=== PATIENT | female | born 1955 | race Caucasian/White ===

== ENCOUNTER 2018-10-17 06:27 | Day surgery (SDC) | payer OTHER ==
[2018-10-16 14:51] VITALS: BP 117/59
[2018-10-16 14:53] LABS: BASOPHILS % (AUTO) 0.6 % (0.0-5.0); EOSINOPHILS % (AUTO) 1.5 % (0.0-8.0); HEMATOCRIT 39.9 % (36-48); MEAN CORPUSCULAR HEMOGLOBIN 30.6 pg (27.0-33.0); MEAN CORPUSCULAR HGB CONC 34.6 g/dL (32.0-36.0); MEAN CORPUSCULAR VOLUME 88.3 fL (79-99); MONOCYTES % (AUTO) 7.2 % (3.0-13.0); NEUTROPHILS % (AUTO) 59.7 % (40.0-77.0); PLATELET COUNT (AUTO) 231 K/uL (130-400); RED BLOOD CELL COUNT(AUTO) 4.52 MIL/uL (4.00-5.50); RED CELL DISTRIBUTION WIDTH 12.9 % (11.0-15.5); WHITE BLOOD COUNT (AUTO) 8.5 K/uL (4.8-10.8)
[2018-10-16 15:04] LABS: CREATININE 0.9 mg/dL (0.5-1.5); POTASSIUM 4.4 mmol/L (3.5-5.1)
[~2018-10-17] VITALS: Ht 158.8 cm; Wt 80.4 kg
[2018-10-17] VITALS (18 sets, daily range): BP systolic 106–130; BP diastolic 50–72
[2018-10-17] MEDS ORDERED: LACTATED RINGERS 1000ML 1,000 ML IV ONE (07:09)
[2018-10-17] MEDS: CEFAZOLIN SODIUM 1 GM VIAL IVP PRN ×2 (07:22→08:43)
--- NOTE | 2018-10-17 07:23 | NUR ---
VALUABLES: CLOTHING, GLASSES AND CELL PHONE GIVEN TO SPOUSE. ONE YELLOW COLOR COATED RING WITH WHITE COLOR STONE TAPED TO LEFT RING FINGER.
[2018-10-17] MEDS ORDERED: ONDANSETRON HCL 4 MG/2 ML VIAL ONE (08:23)
[2018-10-17] MEDS ORDERED: LIDOCAINE PF 2% 5ML ABBOJECT ONE (08:23)
[2018-10-17] MEDS ORDERED: DEXAMETHASONE SOD PHOSPHATE 10MG/ML 1ML VIAL ONE (08:23)
[2018-10-17] MEDS ORDERED: MIDAZOLAM HCL 1 MG/ML 2ML VIAL ONE (08:24)
[2018-10-17] MEDS ORDERED: PROPOFOL 10 MG/ML 20ML VIAL IV ONE (08:24)
[2018-10-17] MEDS ORDERED: FENTANYL CITRATE PF 50 MCG/1 ML 2ML VIAL ONE (08:24)
[2018-10-17] MEDS ORDERED: ROCURONIUM 10MG/1ML SYR 10 MG/ML ML ONE (08:56)
[2018-10-17] MEDS ORDERED: GLYCOPYRROLATE 1 MG/5 ML SYRINGE ONE (09:17)
[2018-10-17] MEDS ORDERED: NEOSTIGMINE 5MG/5ML SYR IV ONE (09:18)
[2018-10-17] MEDS ORDERED: NAPR-1192 PO (09:19)
[2018-10-17] MEDS ORDERED: TYL3 PO (09:19)
[2018-10-17] MEDS ORDERED: CEPH500B PO (09:19)
[2018-10-17] MEDS ORDERED: MEPERIDINE-PF 25 MG/ML SYG ONE ×2 (09:39→09:49)
[2018-10-17] MEDS ORDERED: KETOROLAC TROMETHAMINE 30MG/ML ONE (09:56)
== END 2018-10-17 11:25 | disposition home or self-care (01) ==
LOC: DAH 06:27
PROVIDERS: ATTEND Orthopaedic Surgery
DX: M23.212 Derangement of anterior horn of medial meniscus due to old tear or injury, left knee (principal); Z85.3 Personal history of malignant neoplasm of breast; Z85.828 Personal history of other malignant neoplasm of skin; Z85.41 Personal history of malignant neoplasm of cervix uteri; Z86.010 Personal history of colon polyps; Z98.41 Cataract extraction status, right eye; Z98.42 Cataract extraction status, left eye; M19.90 Unspecified osteoarthritis, unspecified site; Z98.890 Other specified postprocedural states; Z90.710 Acquired absence of both cervix and uterus; Z82.49 Family history of ischemic heart disease and other diseases of the circulatory system; Z83.3 Family history of diabetes mellitus; G89.29 Other chronic pain
CPT/HCPCS: 29881; 36415; 80048; 85025; A4218; A4606; A4649 ×2; A4930; A6223; J0690; J1100; J1885; J2001; J2175 ×2; J2250; J2405; J2704; J2710; J3010; J3490; J7120 ×2

== ENCOUNTER 2019-07-01 08:23 | Inpatient (IN) | payer OTHER | END 2019-07-03 19:00 | LOC: DAHIP 08:23 → 4BH 15:43 | PROC: 0SRD0J9 Replacement of Left Knee Joint with Synthetic Substitute, Cemented, Open Approach (ICD-10-PCS; principal; 2019-07-01 11:50) | DX: M17.12 Unilateral primary osteoarthritis, left knee (principal) ==

== ENCOUNTER → 2019-11-06 | Outpatient (CLI) | payer OTHER ==
[~2019-11-06] VITALS: Ht 157.5 cm; Wt 74.4 kg
[~2019-11-06] MED LIST: HYDR-4064 PO
[2019-11-06 17:29] VITALS: BP 146/75
== END | disposition home or self-care (01) ==
LOC: DAH 10:00 → EDSTATUS 12-16 17:10
PROVIDERS: ATTEND Orthopaedic Surgery

== ENCOUNTER 2019-12-14 11:00 | Inpatient (IN) | payer OTHER ==
[~2019-12-14] VITALS: Ht 157.5 cm; Wt 76.5 kg
[2019-12-14 10:41] LABS: BASOPHILS % (AUTO) 0.6 % (0.0-5.0); EOSINOPHILS % (AUTO) 1.6 % (0.0-8.0); HEMATOCRIT 40.8 % (36-48); LYMPHOCYTES % (AUTO) 25.8 % (21.0-51.0); MEAN CORPUSCULAR HEMOGLOBIN 28.9 pg (27.0-33.0); MEAN CORPUSCULAR HGB CONC 32.8 g/dL (32.0-36.0); MEAN CORPUSCULAR VOLUME 88.1 fL (79-99); MONOCYTES % (AUTO) 7.8 % (3.0-13.0); NEUTROPHILS % (AUTO) 63.8 % (40.0-77.0); PLATELET COUNT (AUTO) 200 K/uL (130-400); RED BLOOD CELL COUNT(AUTO) 4.63 MIL/uL (4.00-5.50); RED CELL DISTRIBUTION WIDTH 12.6 % (11.0-15.5)
[2019-12-14 10:44] VITALS: BP 137/63
[2019-12-14 10:49] LABS: CREATININE 0.9 mg/dL (0.5-1.5); POTASSIUM 3.9 mmol/L (3.5-5.1)
[2019-12-14 10:53] LABS: INR 0.97 (0.85-1.15); PROTHROMBIN TIME 10.2 SEC (9.6-11.6)
[2019-12-14 11:13] LABS: APPEARANCE,URINE Clear (CLEAR); BILIRUBIN,URINE Negative (NEGATIVE); COLOR,URINE Yellow (YELLOW); GLUCOSE, URINE (UA) Negative (NEGATIVE); KETONES,URINE Trace mg/dL (NEGATIVE); LEUKOCYTE ESTERASE ,URINE Small (NEGATIVE); NITRATE,URINE Negative (NEGATIVE); OCCULT BLOOD,URINE Negative (NEGATIVE); PH,URINE 6.5 (5.0-8.0); PROTEIN,URINE Negative (NEGATIVE)
[2019-12-14 11:25] LABS: BACTERIA,URINE Rare /HPF (None Seen); RBC,URINE 0-1 /HPF (0-1); SQUAMOUS EPITHELIAL CELL,UR Rare /HPF (0-2); WBC,URINE 0-1 /HPF (0-1)
--- NOTE | 2019-12-15 12:52 | NUR ---
ABNORMAL UA: DR. SIERRA OHARA NOTIFIED OF ABNORMAL UA AND ORDERS GIVEN.
[2019-12-16] VITALS (22 sets, daily range): BP systolic 96–129; BP diastolic 54–74
[2019-12-16] MEDS ORDERED: CEFAZOLIN SODIUM 1 GM VIAL IVP SCH (06:00)
[2019-12-16] MEDS ORDERED: CEFAZOLIN SODIUM 1 GM VIAL ONE ×5 (07:35→10:18)
[2019-12-16] MEDS ORDERED: TRANEXAMIC ACID 1000MG/10ML ONE ×2 (07:36)
[2019-12-16] MEDS ORDERED: CELECOXIB 200 MG CAP ONE (08:31)
[2019-12-16] MEDS ORDERED: METOCLOPRAMIDE 10 MG/2 ML VIAL ONE (08:31)
[2019-12-16] MEDS ORDERED: ACETAMINOPHEN EXTRA STRENGTH 500 MG TABLET ONE (08:31)
[2019-12-16] MEDS ORDERED: KETOROLAC TROMETHAMINE 15MG/ML ONE (08:31)
[2019-12-16] MEDS ORDERED: LACTATED RINGERS 1000ML 1,000 ML IV ONE (08:40)
[2019-12-16] MEDS ORDERED: MIDAZOLAM HCL 1 MG/ML 2ML VIAL ONE (08:52)
[2019-12-16] MEDS ORDERED: LIDOCAINE PF 2% 5ML ABBOJECT ONE (08:53)
[2019-12-16] MEDS ORDERED: PROPOFOL 10 MG/ML 20ML VIAL IV ONE (08:53)
[2019-12-16] MEDS ORDERED: SUCCINYLCHOLINE 200MG/10ML SYR ONE (08:53)
[2019-12-16] MEDS ORDERED: ROCURONIUM 10MG/1ML SYR 10 MG/ML ML ONE (08:54)
[2019-12-16] MEDS ORDERED: FENTANYL CITRATE PF 50 MCG/1 ML 2ML VIAL ONE ×2 (08:54→12:33)
[2019-12-16] MEDS ORDERED: ROPIVACAINE 0.5% 5MG/ML 30ML IJ ONE (08:58)
[2019-12-16] MEDS ORDERED: GENTAMICIN SULFATE 240 MG in SODIUM CHLORIDE 0.9% 100 ML IV SCH (09:00)
[2019-12-16] MEDS ORDERED: PHENYLEPHRINE HCL 10 MG/ML 1ML VIAL IV ONE (09:58)
[2019-12-16] MEDS ORDERED: NEOSTIGMINE 5MG/5ML SYR IV ONE (11:10)
[2019-12-16] MEDS ORDERED: GLYCOPYRROLATE 1 MG/5 ML SYRINGE ONE (11:10)
[2019-12-16] MEDS ORDERED: ONDANSETRON HCL 4 MG/2 ML VIAL ONE (11:11)
[2019-12-16] MEDS ORDERED: KETOROLAC TROMETHAMINE 30MG/ML ONE (11:11)
[2019-12-16] MEDS: SODIUM CHLORIDE 0.9% 1000ML 1,000 ML IV SCH ×2 (11:14→22:23)
[2019-12-16] MEDS ORDERED: POTASSIUM CHLORIDE 10% ELIXIR 20 MEQ/15 ML UDCUP PO PRN (11:15)
[2019-12-16] MEDS ORDERED: FERROUS FUMARATE 324 MG TABLET PO PRN (11:15)
[2019-12-16] MEDS ORDERED: DiphenhydrAMINE HCL 50 MG/ML VIAL IVP PRN (11:15)
[2019-12-16] MEDS ORDERED: POTASSIUM CHLORIDE 20MEQ/100ML 100 ML IV PRN (11:15)
[2019-12-16] MEDS ORDERED: ONDANSETRON HCL 4 MG/2 ML VIAL IVP PRN (11:15)
[2019-12-16] MEDS ORDERED: TEMAZEPAM 15 MG CAPSULE PO PRN (11:15)
[2019-12-16] MEDS: ACETAMINOPHEN EXTRA STRENGTH 500 MG TABLET PO SCH ×2 (11:15→19:29)
[2019-12-16] MEDS ORDERED: LIDOCAINE HCL-MPF 1% 2ML VIAL IV PRN (11:15)
--- NOTE | 2019-12-16 12:20 | NUR ---
TRANEXAMIC ACID 1GM IVPB GIVEN IN PACU. Addendum: 12/16/19 at 1221 by FILIBERTO ALVAREZ RN RN Amended: Links added.
[2019-12-16] MEDS: OXYCODONE HCL 5 MG TAB PO PRN ×2 (15:38→20:46)
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
[2019-12-16] MEDS: CEFAZOLIN SODIUM 1 GM VIAL IVP SCH (16:55)
[2019-12-16] MEDS: KETOROLAC TROMETHAMINE 15MG/ML IV PRN (19:30)
[2019-12-16] MEDS: ASPIRIN 81MG TAB.CHEW PO SCH (20:47)
[2019-12-16] MEDS: PREGABALIN 25 MG CAP PO SCH (20:47)
[2019-12-16] MEDS: CELECOXIB 200 MG CAP PO SCH (20:47)
[2019-12-16] MEDS: FAMOTIDINE 20MG TAB 20 MG TAB PO SCH (20:47)
[2019-12-16] MEDS ORDERED: HYDROMORPHONE 4MG/ML 1ML VIAL IVP PRN (22:15)
[2019-12-16] MEDS ORDERED: HYDROMORPHONE HCL 2 MG/ML VIAL ONE (22:24)
[2019-12-17] VITALS (7 sets, daily range): BP systolic 96–121; BP diastolic 50–63
[2019-12-17] MEDS: CEFAZOLIN SODIUM 1 GM VIAL IVP SCH (00:03)
[2019-12-17] MEDS ORDERED: HYDROMORPHONE 1 MG/1 ML AMP ONE ×2 (00:15→02:24)
[2019-12-17] MEDS: OXYCODONE HCL 5 MG TAB PO PRN ×6 (01:09→23:44)
[2019-12-17] MEDS: ACETAMINOPHEN EXTRA STRENGTH 500 MG TABLET PO SCH ×3 (02:47→19:27)
[2019-12-17] MEDS: HYDROMORPHONE 1 MG/1 ML AMP IVP PRN ×5 (04:08→22:54)
[2019-12-17 05:02] LABS: HEMATOCRIT 27.1 % (36-48); MEAN CORPUSCULAR HEMOGLOBIN 28.8 pg (27.0-33.0); MEAN CORPUSCULAR HGB CONC 32.8 g/dL (32.0-36.0); MEAN CORPUSCULAR VOLUME 87.7 fL (79-99); PLATELET COUNT (AUTO) 138 K/uL (130-400); RED BLOOD CELL COUNT(AUTO) 3.09 MIL/uL (4.00-5.50); RED CELL DISTRIBUTION WIDTH 13.1 % (11.0-15.5); WHITE BLOOD COUNT (AUTO) 8.1 K/uL (4.8-10.8)
[2019-12-17 05:08] LABS: CREATININE 1.1 mg/dL (0.5-1.5); POTASSIUM 3.6 mmol/L (3.5-5.1)
[2019-12-17] MEDS: SODIUM CHLORIDE 0.9% 1000ML 1,000 ML IV SCH (06:27)
[2019-12-17] MEDS: PREGABALIN 25 MG CAP PO SCH ×2 (08:09→19:30)
[2019-12-17] MEDS: POTASSIUM CHLORIDE 20 MEQ ERTAB PO PRN ×2 (08:10→19:29)
[2019-12-17] MEDS: CALCIUM CARBONATE 500 MG TABLET PO PRN ×2 (08:10→19:30)
[2019-12-17] MEDS: FAMOTIDINE 20MG TAB 20 MG TAB PO SCH ×2 (08:11→19:29)
[2019-12-17] MEDS: CELECOXIB 200 MG CAP PO SCH ×2 (08:11→19:30)
[2019-12-17] MEDS: POLYETHYLENE GLYCOL 3350 17 GM POWD.PACK PO SCH (08:11)
[2019-12-17] MEDS: ASPIRIN 81MG TAB.CHEW PO SCH ×2 (08:11→19:30)
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
[2019-12-17] MEDS ORDERED: NALOXONE HCL 0.4 MG/1 ML ML IVP PRN (19:30)
[2019-12-18] VITALS (7 sets, daily range): BP systolic 97–134; BP diastolic 50–71
[2019-12-18] MEDS: HYDROMORPHONE 1 MG/1 ML AMP IVP PRN (00:56)
[2019-12-18] MEDS: ACETAMINOPHEN EXTRA STRENGTH 500 MG TABLET PO SCH ×3 (04:54→18:19)
--- NOTE | 2019-12-18 08:01 | NUR ---
REFUSED OXYCODONE OFFERED PATIENT OXYCODONE 10 MG PREMEDICATIONS FOR PHYSICAL THERAPY. PATIENT REFUSED IT AND STATED "I OVERDOSED ON OXYCODONE, DR OHARA SAID TO ONLY TAKE ONE" O EXPLAINED TO HER THAT SHE COULD GET ONLY ONE IF SHE FELT COMFORTABLE WITH IT. PATIENT INSIST THAT SHE NEEDS "THE ONE THAT GOES THROUGH THE VEIN, TORADOL" I ALSO EDUCATED HER ON HER DIFFERENT PAIN MEDICATIONS AND ITS SIDE EFFECTS. I GAVE HER THE TORADOL. OXYCODONE 10 WASTED, NEIDA MARIE RN WITNESSED WASTE. WILL CONTINUE TO MONITOR.
[2019-12-18] MEDS: KETOROLAC TROMETHAMINE 15MG/ML IV PRN ×3 (08:04→20:15)
[2019-12-18] MEDS: CELECOXIB 200 MG CAP PO SCH ×2 (08:40→20:15)
[2019-12-18] MEDS: FAMOTIDINE 20MG TAB 20 MG TAB PO SCH ×2 (08:40→20:15)
[2019-12-18] MEDS: ASPIRIN 81MG TAB.CHEW PO SCH ×2 (08:40→20:15)
[2019-12-18] MEDS: POLYETHYLENE GLYCOL 3350 17 GM POWD.PACK PO SCH (08:40)
[2019-12-18] MEDS: PREGABALIN 25 MG CAP PO SCH ×2 (08:40→20:15)
--- NOTE | 2019-12-18 08:50 | NUR ---
REFERRAL SENT TO [facility]
--- NOTE | 2019-12-18 08:51 | NUR ---
REFERRAL SENT LAST NIGHT AFTER HOUSE. [facility] STATES DID NOT REC. WILL RECHECK ALSO NEED TO HAVE AN ORDER THAT ACTUALLY STATES [facility] SITE OF SERVICES, WILL PLACE NOW
--- NOTE | 2019-12-18 08:53 | NUR ---
REFERRAL SENT YESTERDAY AFTER HOURS- NOT RECD, WILL RESEND NOW
--- NOTE | 2019-12-18 11:19 | NUR ---
PATIENT STATED THAT THE TORADOL HELPED ALOT. HER PAIN LEVEL IS 3/10. RIGHT NOW.
--- NOTE | 2019-12-18 17:44 | NUR ---
INFLUENZA VACCINE PT HAD INFLUENZA VACCINE ON 08/01. Addendum: 12/18/19 at 1745 by NEIDA MARIE RN Amended: Links added.
[2019-12-19] MEDS: KETOROLAC TROMETHAMINE 15MG/ML IV PRN ×4 (03:12→22:36)
[2019-12-19] MEDS: ACETAMINOPHEN EXTRA STRENGTH 500 MG TABLET PO SCH ×3 (03:13→19:28)
[2019-12-19 04:00] VITALS: BP 129/58
[2019-12-19 08:00] VITALS: BP 112/72
[2019-12-19] MEDS: POLYETHYLENE GLYCOL 3350 17 GM POWD.PACK PO SCH (08:24)
[2019-12-19] MEDS: FAMOTIDINE 20MG TAB 20 MG TAB PO SCH ×2 (08:25→19:26)
[2019-12-19] MEDS: PREGABALIN 25 MG CAP PO SCH ×2 (08:25→19:27)
[2019-12-19] MEDS: CELECOXIB 200 MG CAP PO SCH ×2 (08:25→19:27)
[2019-12-19] MEDS: OXYCODONE HCL 5 MG TAB PO PRN ×4 (08:27→23:51)
[2019-12-19] MEDS: ASPIRIN 81MG TAB.CHEW PO SCH ×2 (08:28→19:27)
[2019-12-19 11:00] VITALS: BP 110/63
[2019-12-19] MEDS ORDERED: BISACODYL 10 MG SUPP.RECT RC PRN (11:15)
[2019-12-19 19:53] VITALS: BP 119/75
[2019-12-19 22:48] VITALS: BP 108/55
[2019-12-20] MEDS: ACETAMINOPHEN EXTRA STRENGTH 500 MG TABLET PO SCH ×3 (03:05→19:00)
[2019-12-20] MEDS: KETOROLAC TROMETHAMINE 15MG/ML IV PRN ×5 (03:05→21:24)
[2019-12-20 03:46] VITALS: BP 101/53
[2019-12-20 08:00] VITALS: BP 107/56
[2019-12-20] MEDS: OXYCODONE HCL 5 MG TAB PO PRN ×3 (08:11→18:43)
[2019-12-20] MEDS: POLYETHYLENE GLYCOL 3350 17 GM POWD.PACK PO SCH (08:17)
[2019-12-20] MEDS: ASPIRIN 81MG TAB.CHEW PO SCH ×2 (08:18→21:07)
[2019-12-20] MEDS: PREGABALIN 25 MG CAP PO SCH ×2 (08:18→21:06)
[2019-12-20] MEDS: FAMOTIDINE 20MG TAB 20 MG TAB PO SCH ×2 (08:18→21:06)
[2019-12-20] MEDS: CELECOXIB 200 MG CAP PO SCH ×2 (08:18→21:06)
[2019-12-20 11:00] VITALS: BP 124/63
[2019-12-20 16:00] VITALS: BP 110/53
[2019-12-20 19:23] VITALS: BP 109/60
[2019-12-20 23:39] VITALS: BP 112/50
[2019-12-21] MEDS: ACETAMINOPHEN EXTRA STRENGTH 500 MG TABLET PO SCH ×3 (03:30→20:10)
[2019-12-21 03:40] VITALS: BP 109/55
[2019-12-21] MEDS: OXYCODONE HCL 5 MG TAB PO PRN ×4 (06:37→22:35)
[2019-12-21 08:25] VITALS: BP 108/62
[2019-12-21] MEDS: PREGABALIN 25 MG CAP PO SCH ×2 (09:10→20:11)
[2019-12-21] MEDS: CELECOXIB 200 MG CAP PO SCH ×2 (09:10→20:11)
[2019-12-21] MEDS: ASPIRIN 81MG TAB.CHEW PO SCH ×2 (09:10→20:10)
[2019-12-21] MEDS: POLYETHYLENE GLYCOL 3350 17 GM POWD.PACK PO SCH (09:10)
[2019-12-21] MEDS: FAMOTIDINE 20MG TAB 20 MG TAB PO SCH ×2 (09:10→20:10)
[2019-12-21] MEDS: KETOROLAC TROMETHAMINE 15MG/ML IV PRN (09:16)
[2019-12-21 12:00] VITALS: BP 117/69
[2019-12-21] MEDS: TRAMADOL HCL 50 MG TABLET PO PRN ×2 (14:24→20:16)
--- NOTE | 2019-12-21 14:27 | NUR ---
PAGED DR. OHARA REGARDING TORADOL DISCONTINUED THIS AM. PATIENT REQUESTING TO HAVE TORADOL REINSTATED. MESSAGE LEFT NO ANSWER AT THIS TIME.
[2019-12-21 20:24] VITALS: BP 127/55
[2019-12-22 00:28] VITALS: BP 117/49
[2019-12-22] MEDS: OXYCODONE HCL 5 MG TAB PO PRN ×2 (02:41→19:26)
[2019-12-22] MEDS: ACETAMINOPHEN EXTRA STRENGTH 500 MG TABLET PO SCH ×3 (04:00→19:15)
[2019-12-22 08:18] VITALS: BP 111/64
[2019-12-22] MEDS: FAMOTIDINE 20MG TAB 20 MG TAB PO SCH (08:51)
[2019-12-22] MEDS: CELECOXIB 200 MG CAP PO SCH (08:52)
[2019-12-22] MEDS: PREGABALIN 25 MG CAP PO SCH (08:52)
[2019-12-22] MEDS: ASPIRIN 81MG TAB.CHEW PO SCH (08:52)
[2019-12-22] MEDS: POLYETHYLENE GLYCOL 3350 17 GM POWD.PACK PO SCH (08:52)
[2019-12-22] MEDS: TRAMADOL HCL 50 MG TABLET PO PRN ×2 (08:53→14:23)
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
[2019-12-22 11:55] VITALS: BP 122/56
--- NOTE | 2019-12-22 14:22 | NUR ---
DAVI SCREEN - LOS X 6 Pt admitted for osteoarthritis. Pt is s/p TKA. Pt tolerating Regular diet well with no report of GI distress. Pt with no nutritional concerns at this time. Please notify as nutrition concerns arise. Thank you. Addendum: 12/22/19 at [address] Amended: Links added.
--- NOTE | 2019-12-22 16:37 | NUR ---
AMY RAO FROM [place]- CONTACTED BY [facility] THEY WILL TAKE PATIENT RN AND DR. OHARA ADVISED
--- NOTE | 2019-12-22 19:45 | NUR ---
DISCHARGE PATIENT GIVEN DISCHARGE INSTRUCTIONS VIA TEACH BACK. PATIENT/SPOUSE INSTRUCTED ON TRANSFER TO [facility] IN [place], PAIN MANAGEMENT, PHYSICAL THERAPY AND MD APPOINTMENTS. REPORT GIVEN TO PABLITO FAYE AT [facility]. PATIENT'S SPOUSE TO TRANSPORT PATIENT TO [facility]. PATIENT STABLE AT THIS TIME AND DENIES ANY PAIN OR DISCOMFORT. DRESSING TO RIGHT KNEE CHANGED, NO S/S OF INFECTION NOTED. REPORT GIVEN TO PABLITO GOMEZ.
--- NOTE | 2019-12-22 21:04 | NUR ---
DISCHARGE PT WAS DISCHARGED AT THIS TIME, FAMILY MEMBER TO DRIVE PT TO FACILITY. PT AWAKE, ALERT AND VERBALLY RESPONSIVE.
--- NOTE | 2019-12-23 16:47 | NUR ---
JAVON RAO FROM [place]- CONTACTED BY [facility] THEY WILL TAKE PATIENT RN AND DR. OHARA ADVISED
== END 2019-12-22 21:00 | DRG 470 ==
LOC: DAHIP 12-16 06:55 → 4AH 12-16 11:34
PROVIDERS: ADMIT Orthopaedic Surgery; ATTEND Orthopaedic Surgery
PROC: 0SRC0J9 Replacement of Right Knee Joint with Synthetic Substitute, Cemented, Open Approach (ICD-10-PCS; principal; 2019-12-16 09:05)
DX: M17.11 Unilateral primary osteoarthritis, right knee (principal); D62 Acute posthemorrhagic anemia; Z96.652 Presence of left artificial knee joint; G89.29 Other chronic pain; Z82.49 Family history of ischemic heart disease and other diseases of the circulatory system; Z83.3 Family history of diabetes mellitus; Z85.3 Personal history of malignant neoplasm of breast; Z85.41 Personal history of malignant neoplasm of cervix uteri; Z85.828 Personal history of other malignant neoplasm of skin; Z90.710 Acquired absence of both cervix and uterus; Z86.010 Personal history of colon polyps; Z82.61 Family history of arthritis
CPT/HCPCS: 36415; 80048; 81001; 85025; 85027; 85610; 87641; 88304; 88311; 96365; 96374; 96375; 97039; G0378; J0330; J0690; J1170; J1580; J1885; J2001; J2250; J2370; J2405; J2704; J2710; J2765; J2795; J3010; J3490; J7030; J7120

== ENCOUNTER 2021-01-20 13:33 | Emergency (ER) | payer OTHER | END 2021-01-20 15:32 | disposition home or self-care (01) | LOC: EDH 13:33 | DX: S80.02XA Contusion of left knee, initial encounter (principal); M25.462 Effusion, left knee; Z72.0 Tobacco use; W18.39XA Other fall on same level, initial encounter; Y93.89 Activity, other specified; Y92.89 Other specified places as the place of occurrence of the external cause; Y99.8 Other external cause status | CPT/HCPCS: 73562; 96374 ==